=== PATIENT | female | born 2005 | race Caucasian/White ===

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

== ENCOUNTER 2025-06-01 19:31 | Emergency (ER) | payer OTHER, SELFPAY ==
--- OUTSIDE RECORDS SUMMARY | 2022-10-30 08:29 | XMS_ITS | Continuity of Care Document ---
Author Organization [facility] Address [address] [place] [address] Phone Care Team Providers Care Industry Consultant Name Role Phone Mauricio Lovett MD Unavailable Unavailable Allergies, Adverse Reactions, Alerts Substance Reaction Status Criticality RIZATRIPTAN BENZOATE Anaphylaxis Active No Info rmation cefdinir Shortness Of BreathHivesHives Active No Information POTASSIUM CLAVULANATE Anaphylaxis Active No Inf ormation AMOXICILLIN TRIHYDRATE Anaphylaxis Active No In formation [id number] Antimigraine Agents Anaphylaxis Active No Information Medications Medication Instructions Dosage Effective Dates (start - stop) Status Comments Tylenol Extra Strength 500 mg tablet take 2 tablet by oral route every 6 hours as needed 1000 MG - Active ondansetron HCl 4 mg tablet take 1 Tablet by oral route every 6 hours as needed 4 MG - Active naloxone 4 mg/actuation nasal spray - Active morphine 15 mg immediate release tablet take 0.5 tablet by oral route every 4 hours as needed for severe pain - Active escitalopram 20 mg tablet take 0.5 tablet by oral route every day 10 MG - Active desogestrel 0.15 mg-ethinyl estradiol 0.03 mg tablet take 1 tablet by oral route every day 1.00 tablet - Active Procedures Procedure Date Est Pt Eval 25 Min Telehealth 3 No Show Visit Fee Greater Occipital Block Ultrason Guidan Needle Bx-rad 3 Inj Anes Agent Greater Occipt 3 Ultrason Guidan Needle Bx-rad 3 Inj Anes Agent Greater Occipt 3 Change Control for Modifier(s) 23 CC Control For Rem/Void Of Mutually Excl usive Proc Verified No Separate Anesthesia 023 Psychotherapy, 45 minutes with patient T elehealth No Charge No Show Visit Fee Psychiatric Diagnostic Evaluation Teleph one Only New Pt Eval 45 Min Advance Directives Directive Yes / No Effective Date File Name No Information Encounters Encounter Description Practice Location Reason(s) For Visit Diagnoses Date Provider Providers Copied on Encounter CHANTE Wyman, [address], [place], [place], [id number], [place] tel:[phone] [facility] No Information 3 Bony Martínez. [address], [place], [place], [address], [place]. tel:[phone] Referring Provider: Amrik Lovett, [address], [place], [address] . tel:[phone] Est Pt Eval 25 Min Telehealth [facility], [address], [place], [place], [id number], [place] tel:[phone] [facility] headache (chief complaint) Trigeminal neuralgiaMigraine without aura, intractable, with status migrainosusBody mass index (BMI) 19 or less, adult 3 Ketola Elisa. [address], [address], [facility] [place], [address], [place]. tel:[phone] Referring Provider: Amrik Lovett, [address], [facility] [place], [address] . tel:[phone] [facility], [address], [place], [place], [address], [place] tel:[phone] [facility] No Information 3 Zoie Hatch. [address], [address], [facility] [facility], [id number], [place]. tel:[phone] Referring Provider: REFERRAL NILESH, DALE. SUKHDEV Wyman, [address], [place], [place], [id number], [place] tel:[phone] [facility] No Information 3 Serjio Lopezy. [address], [place], [address], [place]. tel:[phone] Referring Provider: Chandana Bassett, [address], [place], [address]. tel:[phone] [facility], [address], [place], [address], [place] tel:[phone] [facility] Head Pain (chief complaint) Trigeminal neuralgiaTrigeminal neuralgia 3 [facility]. [address], [place], [place], [address], [place]. tel:[phone] Referring Provider: Chandana Bassett, [address], [place], [address]. tel:[phone] SUKHDEV Wyman, [address], [place], [place], [address], [place] tel:[phone] [facility] No Information 3 Serjio Ellington. [address], [place], [address], [place]. tel:[phone] Referring Provider: Chandana Bassett, [address], [place], [address]. tel:[phone] Psychotherap y, 45 minutes with patient Telehealth SUKHDEV Wyman, [address], [place], [place], [address], [place] tel:[phone] [facility] Pain disorder with related psychological factorsGeneralized anxiety disorder 3 Zoie Hatch. [address], [address], [place], [address], [place]. tel:[phone] Referring Provider: Amrik Lovett, [address], [place], [address] . tel:[phone] [facility], [address], [place], [place], [address], [place] tel:[phone] [facility] No Information 3 Zoie Hatch. [address], [address], [place], [address], [place]. tel:[phone] Referring Provider: REFERRAL DALE GALLOWAY. [facility], [address], [place], [place], [address], [place] tel:[phone] [facility] No Information 3 Zoie Hatch. [address], [address], [place], [address], [place]. tel:[phone] Referring Provider: REFERRAL SELFDALE. Psychiatric Diagnostic Evaluation Telephone Only [facility], [address], [place], [place], [address], [place] tel:[phone] [facility] Pain disorder with related psychological factorsGeneralized anxiety disorder 3 Zoie Hatch. [address], [address], [place], [address], [place]. tel:[phone] Referring Provider: Amrik Lovett, [address], [place], [address] . tel:[phone] New Pt Eval 45 Min [facility], [facility], [address], [place], [place], [address], [place] tel:[phone] [facility] headache (chief complaint) Trigeminal neuralgiaAtypical facial painMigraine without aura, intractable, with status migrainosus 3 Stayner Patrick. [address], [facility], [address], [place]. tel:[phone] Referring Provider: REFERRAL SELF, DALE. [facility], [facility], [address], [place], [place], [address], [place] tel:[phone] [facility] No Information 3 Stayner Patrick. [address], [place], [address], [place]. tel:[phone] [facility], [address], [place], [place], [address], [place] tel:[phone] YESENIA Wyman No Information 3 RN RN. [address], [address], [facility] [place], [address], [place]. tel:[phone] Family History Family Member Type Diagnosis Age At Onset No Information Payers Payer name Insurance type Covered republican ID Anita lovelaceosmani(s) [facility] CI [id number] Social History Type Description Quantity Date Captured Comments Alcohol Use Details Unknown Caffeine Use Details Unknown Tobacco Use Status No Information Smoking Status No Information Sex Female Chief Complaint And Reason For Visit No Information Reason For Referral Reason For Referral No Information Plan Of Treatment Date Type Action Status Goal Lifestyle education regardin g diet completed Referral Ordered: Referrals: Behavioral Health. Evaluate and treat ordered History Of Present Illness Encounter Date Complaint History Of Prese nt Illness headache Symptom is aggra vated by light, sound, stress and overstimulation. Denies relieving factors. Head Pain The symptoms are reported as being severe. The symptoms occur constantly. Both sides of face; pain behind eyesfractured skull/TBI left side headache Onset: 6 years a go. Severity: incapacitating. It occurs constantly. The problem is worse. Location is frontal left and frontal right. The patient describes it as squeezing. Context: TBI February 2021. Associated symptoms include pressure behind eyes. Functional Status Date Functional Assessmen t No Information Instructions Date Instruction Additional Infor yoonbrenda - Consider Cervical Medial Branch Block and Cervical Radiofrequency Ablation in the futureVisit [email or web address] => treatments =>Interventional Procedures => Medial Branch Block procedures- Continue following up with neurology- Schedule behavioral health as needed- Follow up as needed; Telehealth OK Related to Trigeminal neuralgia Same care of plan as statement for above diagnosis, no changes Related to Migraine without aura, intractable, with status migrainosus Lifestyle education regarding di et Related to Body mass index [BMI] 19.9 or less, adult Follow up in the cli robert to discuss the results of today's injection Related to Trigeminal neuralgia same Related to Atypi tommy facial pain same Related to Migra ine without aura, intractable, with status migrainosus -Schedule a right tr igeminal nerve with sedationNo eating or drinking for 8 hours prior and 

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
--- OUTSIDE RECORDS SUMMARY | 2025-06-01 19:33 | XMS_ITS | Clinical Summary ---
Author Organization [facility] Address [address] [address] Care Team Providers Care Set Up Mechanic Stamping Machines Name Role Phone Shobha Carlisle MD Primary Care Provider [phone] Source Comments You are receiving this document as you are listed as the primary care provider,follow-up provider, or the patient has been referred to you for consultation.This is in compliance with the Medicare andMedicaid EHR Incentive Program,which states Providers who transition their patient to another setting of careor provider of care or refers their patient to another provider of care shouldprovide summary care record for each transition of care or referral. [facility] Allergies Active AllergyReactionsCriticalityNoted DateCommentsAmoxicillin-Pot Clavulanate ZqzoiigvusjNiit60/30/2020CefdinirBreathing Difficulty,MkugiVfto02/30/2020 KagtbehvuozWfxdfqzrmgiRudv09/30/2020 Medications MedicationSigDispense QuantityRefillsLast FilledStart DateEnd DateStatus acetaZOLAMIDE (DIAMOX) 250 MG tablet Take 750 mg by mouth two times a day.Active FLUoxetine (PROZAC) 10 MG tablet Take 10 mg by mouth daily.Active Social History Tobacco UseTypesPacks/DayYears UsedDateSmoking Tobacco: Never Assessed CommentsUnknownSex and Gender InformationValueDate RecordedSex Assigned at Not on fileLegal SyxKizvsa91/15/2019 5:26 PM CSTGender IdentityNot on fileSexual OrientationNot on file Plan of Treatment Health MaintenanceDue DateLast DoneCommentsCervical Cancer Screening Due 2004 4629Btrkmxsxv2004Hep C Screening (Preventive Services)2004MenB Immunization Ganuiydrmh2004HIV Screening (Preventive Services)2020 MCV4 Vaccine (2 - 2-dose series)Adult Preventive Visit 2022HepB Vaccine (1)3COVID-19 Vaccine (1 - season) 2025Influenza Vaccine (#1)502/02/2018, 04/09/2013, 03/30/2011, Additional history existsDTaP/Tdap/Td Vaccine (7 - Tdap), 04/01/2009, 09/27/2005, Additional history existsZoster/Shingles Vaccine (1 of 2)2054Hib WkbrzzfJxeuocdvs09/25/2005, 2004, 2004Pneumococcal VaccineAged Out07/19/2005, 2004, 2004, Additional history existsNo longer eligible based on patient's age to complete this topicHepA Vaccine Zjspmdach90/21/2008, 04/01/2007IPV (Polio) ByxmmbmZjfquyfcu59/22/2009, 07/18/2005, 2004, Additional history existsHPV IxinucvCugpqwjja13/28/2018, 03/08/2017 Insurance * Guarantor: eKila Ashton TypeRelation to PatientDate of BirthPhone Billing AddressPersonal/RirdseAdjglz56/05/1965 [place] [address] Care Teams Team MemberRelationshipSpecialtyStart DateEnd Date Shobha Carlisle MD PCP - GeneralPediatric Medicine07/10/19
--- OUTSIDE RECORDS SUMMARY | 2025-06-01 19:33 | XMS_ITS | Clinical Summary ---
Author Organization [email or web address] Address [address] [place] [address] Care Team Providers Care Junior Financial Analyst Name Role Phone Pretty Arambula MD Primary Care Provider Allergies Active AllergyReactionsCriticalityNoted DateCommentsAmoxicillin-Pot Clavulanate Shortness Of Breath,Rash12/17/2007CefdinirHives,Shortness Of Upyiqo0811/12/2014, [facility] gave cefdinir and had shortness of breath and hives less than 12 hours after taking it. SumatriptanOther - Describe In Comment Field10/18/2020 Weakness, Neck Pain, Lethargic RizatriptanOther - Describe In Comment Field03/19/2019 Difficulty breathing, worsening headache and weakness Medications MedicationSigDispense QuantityRefillsLast FilledStart DateEnd DateStatus sodium chloride (SALINE NASAL) 0.65 % nasal solution Indications:Viral URI with coughInhale 1 [place] in the nostril(s) every hour if needed. 45 mL 03/01/2017Active Additional Information Patient not taking.Reported on 06/21/2024 ondansetron (ZOFRAN) 4 mg tablet Indications:Nausea and vomiting, intractability of vomiting not specified, unspecified vomiting typeTake 1 tablet by mouth every 8 hours if needed for Nausea/Vomiting. 10 tablet 06/29/2017Active fluticasone (50 mcg per actuation) nasal solution (FLONASE) Indications:Chronic intractable headache, unspecified headache typeInhale 1 [place] into both nostrils once daily. 1 Bottle Active Additional Information Patient not taking.Reported on 06/21/2024 naproxen (ANAPROX DS) 550 mg tablet 1,100 mg.12/01/2019Active FLUoxetine (PROZAC) 40 mg capsule Take 40 mg by mouth once daily.11/13/2019Active aluminum chloride (DRYSOL) 20 % external solution Indications:HyperhidrosisApply topically to affected area(s) at bedtime. 60 mL ctive Additional Information Patient not taking.Reported on 06/21/2024 oseltamivir (TAMIFLU) 75 mg capsule Indications:Flu-like symptomsTake 1 Capsule (75 mg) by mouth two times daily. Take as needed for body aches. 10 Capsule 5Active celecoxib (CELEBREX) 100 mg capsule Indications:Body achesTake 1 Capsule (100 mg) by mouth 2 times daily if needed for Pain. 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 S/p LP: still having headaches. Plan:? Photorx and if needed f/u at [facility] [facility] and also [facility]. Chronic wwnhqznao49/13/2020 Overview (08/01/2021): 05/28/2019: F/b DR.Erka Don at [facility], started on Amitriptyline QHs, prn Naprosyn/ retry Imitrex. Referred to Ophthalmology and MRI of brain or blurred optic disc 07/2019 Dr. Florencia Miles follow up. Follow up with neuro-ophtho--NO evidence of intracranial pressure. Adding gabapentin for chronic daily headaches, as well as Zomig. Continue fluoxetine for now. Follow up 08/20/1911/2019 [facility] follow up. Decrease gabapentin to 300mg TID. Naproxen 550mg for abortive therapy if needed. Continue fluoxetine 40mg daily. Plan to continue good control with gabapentin and fluoxetine for at least 6mos before weaning. Follow up one month. 01/01/20 Dr. Don follow up. Never decreased gabapentin. Headaches much improved, but low motivation, sleepy--likely combo of depression, deconditioning and COVID homebound. Plan: decrease mid-day dose to 300mg, then morning dose to 300mg, continue evening dose 400mg; increase fluoxetine to 50mg. Follow up 1- 2mos. Continue abortive therapy 550mg if needed naproxen. 02/2020 Dr. Don. Decreased midday dose to 300mg, mood and energy improved, so never increased to 50mg fluoxetine. Plan decrease dose to 300mg TID if able. Continue fluoxetine 40mg. Follow up 2mos. 04/2020 Dr. Don. Continues to do well, though had one migraine breakthrough. Plan continue gabapentin 400mg/300mg/400mg; continue fluoxetine 40mg. Naproxen or imitrex for breakthrough. Benadryl orzofran if needed. Follow up in 2mos. 08/2020 Dr. Don. Continues daily headaches refractory to high dose gabapentin (has been on 500mg TID). Recommend weaning back down to 300mg TID. Will add Topamax to regimen. Continue fluoxetine 40mg daily. [facility] 1-2 mos. 05/18/21 [facility] intake Resolved Problems ProblemNoted DateDiagnosed DateResolved DateChronic mixed headache syndrome Immunizations ImmunizationAdministration DatesNext DueDT, IPV adsorbed NON-US VACCINE 04/01/2009,07/18/2005,2004,2004,05/26/20044184NNN-Zob-Pei B NON-US KQNYQUT54/,2004,2004DTaP1,09/27/2005,2004, 2004,2004Dtap Unspecified Yvtcnmidkex67/21/2017HIB-HepB (Comvax) 04/04/2005,2004,2004HPV 9 (Gardasil 9)09/05/2017,03/08/2017Hepatitis A (Peds)03/31/2008,04/01/2007Hepatitis A, Pjbfaupbjxb47/21/2008,04/01/2007 Hepatitis B (Peds)04/04/2005,2004,2004Hib Conjugate, Unspecified 04/04/2005,2004,2004Inactivated Polio Xtsbdaa9504/01/2009,07/18/2005, 2004,2004,2004,2004Influenza Virus, Unspecified 03/30/2011,04/18/2006Influenza, IIV3 (Age 6-35 mos)03/30/2011Influenza, IIV3 (Age >=3 years)02/24/2009Influenza, TYE464/07/2019,07/20/2017,04/09/2013 MENINGOCOCCAL VACCINE 2 VIAL 2MO-55YO (MENVEO)10/18/2020,03/01/2017MMR1 ,04/04/2005Pneumococcal conj 7-Valent (Prevnar 7)07/19/2005,2004, 2004,2004Tdap03/01/2017Varicella Lthokvb2904/01/2009,04/04/2005 Family History Medical HistoryRelationNameCommentsDiabetesFatherCancer-pancreaticMaternal GrandmotherThyroid DiseaseMaternal GrandmotherCancerPaternal Grandmotherbladder. DiabetesPaternal GrandmotherThyroid DiseasePaternal GrandmotherRelationName StatusCommentsFatherMaternal GrandmotherPaternal Grandmother Social History Tobacco UseTypesPacks/DayYears UsedDateSmoking Tobacco: NeverPassive Smoke Exposure: NeverSmokeless Tobacco: Never Tobacco Cessation:Counseling Given: No Alcohol UseStandard Drinks/WeekCommentsNever0 (1 standard drink = 0.6 oz pure alcohol)PHQ-2AnswerDate RecordedPHQ-2 Ogkil875Social ConnectionsAnswer Date RecordedDo you often feel lonely or isolated from those around you?0 06/21/2024Financial Resource StrainAnswerDate RecordedDifficulty of Paying Living Znjusypq511/01/2025Difficulty of Paying Living ExpensesNot on file 07/12/2024Food InsecurityAnswerDate RecordedDo you worry your food will run out before you are able to buy more?Transportation NeedsAnswerDate RecordedDoes lack of transportation keep you from medical appointments?1 06/21/2024Does lack of transportation keep you from work, meetings or getting things that you need?Housing StabilityAnswerDate RecordedWhat is your housing situation today?UtilitiesAnswerDate RecordedDo you have trouble paying for utilities (for example, heat, electricity, water, phone)?1 06/21/2024CommentsNoSex and Gender InformationValueDate RecordedSex Assigned at BirthNot on fileLegal DymMxdyfd27/14/2013 7:06 AM CSTGender Identity Not on fileSexual OrientationNot on file Last Filed Vital Signs Vital SignReadingTime TakenCommentsBlood Bnweqvqx394/58006/21/2024 5:07 PM THERAPEUTIC MENTOR Jjxgk13833/11/2025 5:07 PM TNGBflsyqvoewf03.6 ??C (99.7 ??F)06/21/2024 5:07 PM CSTRespiratory Dgba594106/21/2024 5:07 PM CSTOxygen Efaawqsdfx36%06/21/2024 5:07 PM CSTInhaled Oxygen Concentration--Akvwzk86.2 kg (115 lb)06/21/2024 5:07 PM THERAPEUTIC MENTOR Xamfna020.1 cm (5' 5)12/29/2020 11:26 AM CDTBody Mass Index-- Plan of Treatment Health MaintenanceDue DateLast DoneCommentsHIV for age 15-6503/25/2019Chlamydia for age 16-241Depression screening for age 12+, 05/06/2019, 04/15/2019, Additional history existsBMI (ht and wt on same day) for age 18+2022Hepatitis C screening for age 18-792COVID-19 vaccine series ( - 2024- season)2025Influenza Vaccine (#1)5107/13/2019, 07/20/2017, 04/09/2013, Additional history existsPap test for age 21-65 2025Tetanus hwsjwye56Hepatitis B series for 19+Completed 04/04/2005, 04/04/2005, 04/04/2005, Additional history existsPneumococcal series for age 6-49Aged Out07/19/2005, 2004, 2004, Additional history existsNo longer eligible based on patient's age to complete this topicHPV series for age 9-00Jlkfnulsj54/28/2018, 03/08/2017Meningococcal series for age 11-21 Bpfnxluts73/10/2021, 03/01/2017 Insurance * Guarantor: Fritz AshtonAccount TypeRelation to PatientDate of BirthPhoneBilling AddressPersonal/[address] [place] [address] * Guarantor: Fritz Ashton TypeRelation to PatientDate of BirthPhoneBilling AddressPersonal/[address] [place] [address] * Guarantor: Patrick Ashton TypeRelation to PatientDate of BirthPhone Billing AddressPersonal/PmmpcoCcqovl59/13/1969 [place] [address] Care Teams Team MemberRelationshipSpecialtyStart DateEnd Date Pretty Arambula MD PCP - GeneralInternal Medicine01/21/23
--- OUTSIDE RECORDS SUMMARY | 2025-06-01 19:33 | XMS_ITS | Clinical Summary ---
Author Organization [place] Address [address] [facility] 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 Name Role Phone Winnie Don MD Unavailable [phone] Pretty Arambula MD Primary Care Provider Stevenson Eddy DO Unavailable Edgar Sanchez MD Unavailable Pretty Arambula MD Unavailable Arielle Freeman MD Unavailable [phone] Abhay Montgomery PA-C Unavailable Estevan Summers MD Unavailable Estevan Summers MD Unavailable [phone] Allergies Active AllergyReactionsCriticalityNoted DateCommentsAmoxicillin-Pot Clavulanate Anaphylaxis,Rash,Shortness Of LeftsfQwma08/08/2008 Difficulty breathing CefdinirDifficulty breathing,Hives,Shortness Of GbfukaMnxw9611/12/2014, [facility] gave cefdinir and had shortness of breath and hives less than 12 hours after taking it. August 2014, [facility] gave cefdinir and had shortness of breath and hives less than 12 hours after taking it. Clavulanic AcidOther (See Comments)Low04RizatriptanAnaphylaxis,Other (See Comments)High03/19/2019 Difficulty breathing, worsening headache and weakness SumatriptanOther (See Comments)10/18/2020 Weakness, Neck Pain, Lethargic Medications MedicationSigDispense QuantityRefillsLast FilledStart DateEnd DateStatus acetaminophen (TYLENOL) 500 MG tablet Indications:Conductive hearing loss due to disorder of middle earTake 2 tablets (1,000 mg) by mouth every 6 hours as needed for mild pain07/11/2021ctive naloxone (NARCAN) 4 MG/0.1ML nasal spray Indications:Chronic tension-type headache, intractable,Chronic pain syndrome [place] 1 spray (4 mg) into one nostril alternating nostrils once as needed for opioid reversal every2-3 minutes until assistance arrives 0.2 mL 04/20/2022ctive morphine (MSIR) 15 MG IR tablet Indications:Chronic tension-type headache, intractable,Chronic pain syndromeTake 0.5 tablets (7.5 mg) by mouth every 4 hours as needed for severe pain 15 tablet 08/08/2023ctive metoprolol tartrate (LOPRESSOR) 25 MG tablet Indications:POTS (postural orthostatic tachycardia syndrome)Take 1 tablet (25 mg) by mouth 2 times daily. 60 tablet 4Active midodrine (PROAMATINE) 2.5 MG tablet Indications:POTS (postural orthostatic tachycardia syndrome)Take 1 tablet (2.5 mg) by mouth 3 times daily. 90 tablet 4Active ondansetron (ZOFRAN ODT) 4 MG ODT tab Indications:Traumatic brain injury with loss of consciousness, sequelaTake 1 tablet (4 mg) by mouth every 6 hours as needed for nausea or vomiting. 30 tablet 5Active desogestrel-ethinyl estradiol (APRI) 0.15-30 MG-MCG tablet Indications:Encounter for initial prescription of contraceptive pillsTake 1 tablet by mouth daily. 84 tablet 5ActiveHospital, Clinic, or Other Facility Administered Medication Ordered DoseRouteFrequencyStart DateEnd DateStatus sodium chloride (PF) 0.9% PF flush 3 mL Indications:Dehydration,POTS (postural orthostatic tachycardia syndrome)3 mLIV EVERY 1 MIN PRN5Active Active Problems ProblemNoted DateDiagnosed DatePOTS (postural orthostatic tachycardia syndrome) 05/17/2023Encounter for long-term (current) use of ysndtvebjlq24/25/2022 Conductive hearing loss, sranhhvsnt16/16/2022hronic tension-type headache, zkhbxxlwzba60/24/2021hronic peripheral neuropathic pain05/04/2021ircadian rhythm sleep qnqbzpao46/24/2021ecreased social ohooyqcrlir97/24/2021hysical ofmkwratkzavvj23/01/2021hronic pain ytcsoopy89/01/2021pecial educational needs 02/09/20212756Jucjnsbo37/25/2021Traumatic brain oemyzm3102/02/2021djustment disorder with mixed anxiety and depressed mood02/02/2021 Resolved Problems ProblemNoted DateDiagnosed DateResolved DateProblem with school attendance SIADH (syndrome of inappropriate ADH production)02/09/2021 08/08/2023Subdural nhrxeutj70 Immunizations ImmunizationAdministration DatesNext DueComvax (HIB/HepB)04/04/2005,2004, 2004DT,IPV Adsorbed (Non-[place])04/01/2009,07/18/2005,2004,2004, 2004DTAP (<7y)04/01/2009,09/27/2005,2004,2004,2004DTaP, Dlcpalxuace80/21/2017Dtp,hib Conjugate,hep B1,2004,2004, 2004,2004Flu, Odhoprdrfal50/20/2011,04/18/2006HIB, Unspecified 04/04/2005,2004,2004HPV09/05/2017HPV9 (Gardasil)09/03/2017, 03/08/2017HepA, Oofdhysgxyq83/21/2008,04/01/2007Hepatitis A (Vaqta/Havrix)(Peds 12m-18y)03/31/2008,04/01/2007Hepatitis B, Peds (Engerix-B/Recombivax HB) 04/04/2005,2004,2004Influenza (IIV3) PF03/30/2011,02/24/2009 Influenza (intradermal)04/18/2006Influenza (prior to 2023)03/30/2011Influenza Vaccine >6 months,quad, PF05/12/2020,07/20/2017,04/09/2013MMR (MMRII)04/01/2009, 04/04/2005Meningococcal ACWY (Menveo??)10/18/2020,03/01/2017Pneumococcal (PCV 7) 07/19/2005,2004,2004,2004Poliovirus, inactivated (IPV) 04/01/2009,07/18/2005,2004,2004,2004TDAP (Adacel,Boostrix) 03/01/2017Varicella (Varivax)04/01/2009,04/04/2005 Family History Medical HistoryRelationCommentsNo Known ProblemsBrother 1No Known Problems Brother 2DiabetesFatherOther CancerMaternal GrandmotherPancreaticThyroid Disease Maternal GrandmotherFibromyalgiaMotherBladder CancerPaternal GrandmotherDiabetes Paternal GrandmotherLung CancerPaternal GrandmotherGlaucomaNo family hx of Macular DegenerationNo family hx ofRelationStatusCommentsBrother 1AliveBrother 2 AliveFatherAliveMaternal GrandfatherMaternal GrandmotherMotherAlivePaternal Grandmother Social History Tobacco UseTypesPacks/DayYears UsedDateSmoking Tobacco: NeverPassive Smoke Exposure: NeverSmokeless Tobacco: Never Tobacco Cessation:Counseling Given: Not Answered Alcohol UseStandard Drinks/WeekCommentsNever0 (1 standard drink = 0.6 oz pure alcohol)PHQ-2AnswerDate RecordedPHQ-2 Wuduj772/4Adolescent EducationAnswer Date RecordedGetting School Help NeededNot on file09/22/2023Food Insecurity AnswerDate RecordedWithin the past 12 months, did you worry that your food would run out before you got money to buy more?No05/16/2023Within the past 12 months, did the food you bought just not last and you didn???t have money to getmore?No 05/16/2023Housing StabilityAnswerDate RecordedDo you have housing? (Housing is defined as stable permanent housing and does not include staying outside in a car, in a tent, in an abandoned building, in an overnight prison, or couch-surfing.)Yes05/16/2023re you worried about losing your housing?No 05/16/2023Financial Resource StrainAnswerDate RecordedWithin the past 12 months, have you or your family members you live with been unable to get utilities (heat, electricity) when it was really needed?No05/16/2023Transportation Needs AnswerDate RecordedWithin the past 12 months, has lack of transportation kept you from medical appointments, getting your medicines, non-medical meetings or appointments, work, or from getting things that you need?No05/16/2023 CommentsNoSex and Gender InformationValueDate RecordedSex Assigned at Kgblls7203/01/2021 8:23 AM CDTLegal ZyzCvzqgz56/04/2012 4:35 AM CSTGender Identity Kphnpr7803/01/2021 8:23 AM CDTSexual DzkhsfdyqpkSbdbngay89/21/2021 8:23 AM CDT Last Filed Vital Signs Vital SignReadingTime TakenCommentsBlood Nyfkqvpp024/77007/01/2024 9:07 AM LATHE SET UP OPERATOR Vdpqg09157/21/2025 9:07 AM ZLJClpnoboaomr45.9 ??C (98.4 ??F)07/01/2024 9:07 AM CSTRespiratory Ywxg897907/01/2024 9:07 AM CSTOxygen Lmhvtjqsto84%07/01/2024 9:07 AM CSTInhaled Oxygen Concentration--Jjxnhw65.5 kg (107 lb)07/01/2024 9:07 AM LATHE SET UP OPERATOR Ijyrdh459.1 cm (5' 5)03/13/2024 9:24 AM CDTBody Mass Index17.8103/13/2024 9:24 AM CDT Plan of Treatment Health MaintenanceDue DateLast DoneCommentsANNUAL REVIEW OF HM ZOLBEJ51 2004 CHLAMYDIA JTTYXOZVO2004HIV ZHTYZEXVH22/15/2019MENINGITIS B VACCINE (1 of 2 - Standard)2020YEARLY PREVENTIVE VISIT/03/2021HEPATITIS C ZHSAIQECM01/15/2022PNEUMOCOCCAL VACCINE: PEDIATRICS (0 to 5 YEARS) AND AT-RISK PATIENTS (6 to 49 YEARS) (1 of 2 - PCV)/01/2006, 2004, 2004, Additional history existsGAD MFKOXQULND03/05/202410/10/2022, 11/23/2022, 11/23/2022, Additional history existsCOVID-19 VACCINE ( - season)2025INFLUENZA VACCINE (#1)/07/2019, 07/20/2017, 04/09/2013, Additional history existsPHQ-91//08/2023, 08/08/2023, 05/16/2023, Additional history nnpvxaLZY43/15/2025ADVANCE CARE PLANNING TAP/TDAP/TD VACCINE (8 - Td or Tdap), 03/01/2017, 04/01/2009, Additional history existsZOSTER VACCINE (1 of 2) 2054HEPATITIS B JKGEUPJUcfrlwtnq98/25/2005, 04/04/2005, 04/04/2005, Additional history existsHPV WCAHRRSMoxgpixsl54/28/2018, 09/03/2017, 03/08/2017 MENINGITIS RBWMRNPGzijedizb13/10/2021, 03/01/2017 Procedures Procedure NamePriorityDate/TimeAssociated DiagnosisCommentsPHQ-9 DEPRESSION SCREENING ZBQEYQxieyfx23/02/2019 from Last 3 Months or Most Recently Relevant to Health Maintenance Results * PHQ-9 DEPRESSION SCREENING ORDER (05/12/2019)ComponentValueRef RangeTest MethodAnalysis TimePerformed AtPathologist SignaturePHQ9 SCORE9 Narrative Kendal Quezada - 05/12/2019 [facility] -Progress note Authorizing ProviderResult TypeResult StatusProvider OutsideOTHERFinal Result from Last 3 Months or Most Recently Relevant to Health Maintenance Insurance * Guarantor: AUREA ASHTON TypeRelation to PatientDate of BirthPhone Billing AddressPersonal/ApxrxmTnwufn30/13/1969 [place] [address] * Guarantor: Fritz Ashtonunt TypeRelation to PatientDate of BirthPhone Billing AddressPersonal/[address] [place] [address] * Guarantor: AUREA ASHTON TypeRelation to PatientDate of BirthPhone Billing AddressPersonal/KhqlraWfvfft80/13/1969 [place] [address] * Guarantor: Fritz Ashton TypeRelation to PatientDate of BirthPhone Billing AddressPersonal/[address] [place] [address] * Guarantor: Tirso ASHTON TypeRelation to PatientDate of BirthPhone Billing VxnlufvHyylisubaiBuwvlp92/13/1969 [place] [address] * Guarantor: AUREA ORR CAc TypeRelation to PatientDate of BirthPhone Billing AddressThird EdbsdFtgzbg[address][birth year][address]1969 [place] [address] * Guarantor: Fritz Ashton EAccolennie TypeRelation to PatientDate of BirthPhone Billing [address]dlhzoIln[address]shmz[address] [place] [address] Advance Directives For more information, please contact: [phone] * Full Code (Latest Code Status on File) Date ActivatedDate InactivatedComments02/02/2021 11:50 AM02/12/2021 1:12 PMAll basic and advanced life-sustaining interventions are performed as appropriate QuestionAnswerCommentsCode status determined by:* Discussion with patient/ legal decision maker * Full Code Date ActivatedDate InactivatedComments01/30/2021 12:08 PM02/01/2021 5:56 PMAll basic and advanced life-sustaining interventions are performed as appropriate QuestionAnswerCommentsCode status determined by:* Discussion with patient/ legal decision maker Care Teams Team MemberRelationshipSpecialtyStart DateEnd Pretty Arambula MD [address] [place] [address] PCP - GeneralInternal Medicine02/18/21 Winnie Don MD [facility] [address] [place] [address] Neurolog07/10/19 Stevenson Eddy DO [address] [place] [id number] MDPhysical Medicine & Rehabilitation, Pediatric02/21/21 Edgar Sanchez MD [address] [place] [address] QWUrlfaixoti88/25/21 Pretty Arambula MD [address] [place] [address] Assigned PCP08/05/22 Arielle Freeman MD [address] [place] [address] Pediatrics02/23/23 Abhay Montgomery PA-C [address] [place] [address] Physician AssistantGastroenterology02/23/23 Estevan Summers MD [address] [place] [address] [id number] MDCardiovascular Disease09/19/23 Estevan Summers MD [address] [place] [id number] Assigned Heart and Vascular Provider03/03/24
[2025-06-01 19:47] VITALS: BP 125/84; PULSE 117; RESP 18; TEMP 36.5; O2SAT 98; BMI 18.8
--- NOTE | 2025-06-01 21:43 | ED.NAVMDI ---
HPI - Nausea/Vomiting/Diarrhea General Date Seen: 06/01/25 Chief complaint: Nausea/Vomiting Stated complaint: Vomiting and lower body pain Time Seen by Provider: 06/01/25 21:43 Source: patient, RN notes reviewed and old records reviewed Mode of arrival: ambulatory Limitations: no limitations History of Present Illness HPI Narrative: Fritz is a 20-year-old female with history of TBI remote history of subdural, diagnosis of EDS with daily chronic pain who comes to the emergency room with her mother for evaluation regarding nausea vomiting diarrhea and severe low back pain radiating around to her anterior thighs and down to her knees for the past 24 hours. Fritz notes the onset of vomiting yesterday with associated very watery diarrhea. She had recently been it too family functions and thought perhaps this was food-borne illness but does not know of any other ill family members. Admittedly, she has not communicated with them however. She notes that she has chronic low back and hip pain from what is presumed to be a lower stand low syndrome but now the pain is much more intense wraps around to the front of her pelvis and down the anterior aspect of her legs. She has not had a known fever but does feel very hot at times. She has not been vomiting any blood. Her EDS has not been formally diagnosed by rheumatology. She had many symptoms that convinced her primary clinic that she may. Patient's mom is worried that in her vomiting she may have dislocated her back or her hips because the pain was so severe. She tells me that her daughter has a very high pain tolerance. Associated nausea: Yes Related Data Home Medications ?Medication ?Instructions ?Recorded ?Confirmed desogestrel 0.15 mg-ethinyl 1 tab PO DAILY 09/24/22 06/01/25 estradiol 0.03 mg tablet (Apri) Previous Rx's ?Medication ?Instructions ?Recorded prochlorperazine maleate 5 mg 5 mg PO TID PRN #10 tabs 06/02/25 tablet (Compazine) Allergies Allergy/AdvReac Type Severity Reaction Status Date / Time amoxicillin (From Augmentin) Allergy Mild Hives Verified 06/01/25 19:53 clavulanic acid (From Allergy Mild Hives Verified 06/01/25 19:53 Augmentin) sumatriptan Allergy Mild Hives Verified 06/01/25 19:53 cefdinir AdvReac Verified 06/01/25 19:54 topiramate (From Topamax) AdvReac Verified 06/01/25 19:54 Review of Systems Status of ROS: Reports: 10 or more systems reviewed and unremarkable except as noted in History and below Const: Reports: chills and fatigue; Denies: fever Eyes: Denies: change in vision ENMT: Denies: neck pain or nasal congestion Cardio: Reports: lightheadedness; Denies: chest pain or shortness of breath with exertion Resp: Denies: shortness of breath or cough GI: Reports: abdominal pain, nausea, vomiting and diarrhea; Denies: blood in stool : Denies: painful urination or urinary frequency Musculo: Reports: back pain, extremity pain and joint pain; Denies: neck pain or extremity swelling Endo: Reports: fatigue PFSH PFSH Medical History Subdural hematoma, post-traumatic ?S06.5XAA - Traumatic subdural hemorrhage with loss of consciousness status unknown, initial encounter (ICD-10) SIADH (syndrome of inappropriate ADH production) ?E22.2 - Syndrome of inappropriate secretion of antidiuretic hormone (ICD-10) Chronic headache ?R51.9 - Headache, unspecified (ICD-10) ?G89.29 - Other chronic pain (ICD-10) History of traumatic brain injury ?Z87.820 - Personal history of traumatic brain injury (ICD-10) Exam Narrative: Exam Narrative: Alert and oriented. Appears to be in significant discomfort. Somewhat distractible. External ears eyes nose clear. Neck is supple. Lips are dry. Heart with a tachycardic rate normal rhythm. Lungs are clear. Abdomen shows rather diffuse discomfort. No rebound tenderness. Palpation down the thoracic and lumbar spine without significant tenderness. No CVA tenderness with percussion. Examination of the lower extremities shows no evidence of rash, petechiae, unusual swelling. She is moving her lower extremities. She is observed walking without difficulty in the ED. Const: Vital Signs, click to edit/add: Vital Signs - 24 hr 06/01/25 19:47 06/01/25 22:47 06/02/25 00:37 Temperature 97.7 F Pulse Rate 89 75 Pulse Rate [Pulse Oximeter] 117 H Respiratory Rate 18 16 16 Blood Pressure 100/56 L 99/58 L Blood Pressure [Le ft Upper Arm] 125/84 Pulse Oximetry 98 98 99 Oxygen Delivery Me thod Room Air Room Air Room Air Documenting provider has reviewed patient's vital signs: yes Course Course ED Course: Differential diagnosis includes but is not limited to pyelonephritis, gastroenteritis, food-borne illness, exacerbation of the EDS from viral syndrome. At this time will place an IV give fluids, Toradol, Compazine 2.5 mg and diphenhydramine 25 mg as she has failed Zofran at home. Labs will include CBC, comprehensive, CRP, hCG, urinalysis. Reevaluation(s) Reevaluation #1: Patient noted to have resolution of vomiting but continued pain. Patient is given morphine 4 mg IV. HCG is negative and therefore will send patient to CT for pain out of proportion to exam. Reevaluation #2: Nursing staff alerts me to the fact that patient is asking for pain and nausea medicine. Will give her a dose of Dilaudid 0.5 mg IV x1. Only awaiting CT results. Vital Signs Vital signs: Initial Vital Signs Temperature 97.7 F 06/01/25 19:47 Temperature Source Temporal Artery Scan 06/01/25 19:47 Pulse Rate 117 H 06/01/25 19:47 Respiratory Rate 18 06/01/25 19:47 Blood Pressure 125/84 06/01/25 19:47 Blood Pressure Mean 97 06/01/25 19:47 Blood Pressure Position Sitting 06/01/25 19:47 Pulse Oximetry 98 06/01/25 19:47 Oxygen Delivery Method Room Air 06/01/25 19:47 Vital Signs Temperature 97.7 F 06/01/25 19:47 Pulse Rate 117 H 06/01/25 19:47 Respiratory Rate 18 06/01/25 19:47 Blood Pressure 125/84 06/01/25 19:47 Pulse Oximetry 98 06/01/25 19:47 Oxygen Delivery Method Room Air 06/01/25 19:47 Temperature 97.7 F 06/01/25 19:47 Pulse Rate 75 06/02/25 00:37 Respiratory Rate 16 06/02/25 00:37 Blood Pressure 99/58 L 06/02/25 00:37 Pulse Oximetry 99 06/02/25 00:37 Oxygen Delivery Method Room Air 06/02/25 00:37 Medications Administered Medications: Generic Name Dose Route Start Last Admin Trade Name Freq PRN Reason Stop Dose Admin Hydromorphone HCl 0.5 mg 06/02/25 00:46 06/02/25 00:00 Hydromorphone 0.5 Mg/0.5 Ml Inj IVP 06/02/25 00:47 0.5 mg ONCE ONE Administration Sodium Chloride 1,000 mls @ 1,000 mls/hr 06/02/25 00:29 06/02/25 01:06 0.9 % Sodium Chloride 1000 Ml IV 06/02/25 01:28 1,000 mls/hr .Q1H LORI Administration Discontinued Medications Generic Name Dose Route Start Last Admin Trade Name Jose Enrique PRN Reason Stop Dose Admin Diphenhydramine HCl 25 mg 06/01/25 21:53 06/01/25 22:16 Diphenhydramine 50 Mg/Ml Inj IVP 06/01/25 21:54 25 mg ONCE ONE Administration Sodium Chloride 1,000 mls @ 1,000 mls/hr 06/01/25 21:53 06/01/25 23:15 0.9 % Sodium Chloride 1000 Ml IV 06/01/25 22:52 Infused .Q1H LORI Infusion Ketorolac Tromethamine 15 mg 06/01/25 21:55 06/01/25 22:13 Ketorolac 15 Mg/Ml Inj IVP 06/01/25 21:56 15 mg ONCE ONE Administration Morphine Sulfate 4 mg 06/01/25 22:25 06/01/25 22:43 Morphine 4 Mg/Ml Inj IVP 06/01/25 22:26 4 mg ONCE ONE Administration Prochlorperazine 2.5 mg 06/01/25 21:53 06/01/25 22:14 Prochlorperazine 5 Mg/Ml Vial IVP 06/01/25 21:54 2.5 mg ONCE ONE Administration MDM - Nausea/Vomiting/Diarrhea MDM Narrative Medical decision making narrative: 1. Vomiting nausea and diarrhea-presume this is a gastroenteritis. Viral load most likely cause but could be bacterial. Unable to collect stool study here in the ED so will send home sample kit. No evidence of colitis noted on CT. Reassuring CT. White count is normal. No evidence of UTI. At this time patient is improved. No further vomiting or diarrhea in the ED with treatment. Will be discharging her home. Will send her home with 2 tablets of Cross to be used 1 tablet every 4 hours as needed. Will also send her home with 1 Compazine tablet 5 mg to be used for return of vomiting. Due to ketone urea 4+ patient to receive 2 L of normal saline. No evidence of UTI as noted. I did send Compazine 5 mg p.o. to the pharmacy. However, I did not send any further pain medications as patient does have history of chronic pain. I feel would be very important that she have limited prescribers. Should she need any further pain medication she will need to go through her primary MD. 2. Disposition-push fluids, rest, return for as needed for worsening symptoms and as needed. Medical Records Attestation: I reviewed the patient's medical records. Lab Data Attestation: I reviewed the patient's lab results. Labs: Lab Results 06/01/25 06/01/25 Range/Units 22:05 23:39 WBC 6.53 (4.50-11.00) K/uL RBC 4.67 (4.00-5.20) m/uL Hgb 14.0 (12.0-16.0) gm/dL Hct 40.1 (33.0-51.0) % MCV 86 (80-100) fL MCH 30 (26-34) pg MCHC 35 (32-36) gm/dL RDW Coeff of Robina 11.9 (11.5-15.5) % Plt Count 223 (140-440) K/uL Neut % (Auto) 89.1 H (42.0-72.0) % Lymph % (Auto) 6.0 L (20-44) % [place] % (Auto) 4.4 (0.0-11.0) % Eos % (Auto) 0.0 (0.0-7.0) % Baso % (Auto) 0.2 (0.0-3.0) % Neut # (Auto) 5.80 (1.7-7.0) K/uL Lymph # (Auto) 0.40 L (0.90-2.90) K/uL [place] # (Auto) 0.30 (0.00-0.90) K/UL Eos # (Auto) 0.00 (0.00-0.50) K/uL Baso # (Auto) 0.01 (0.00-0.30) K/uL Abs Immat Gran (auto) 0.02 (0.00-0.30) K/uL Imm/Tot Granulo (auto) 0.3 % Sodium 133 L (135-149) mmol/L Potassium 3.5 L (3.6-5.1) mmol/L Chloride 104 (96-114) mmol/L Carbon Dioxide 17 L (20-32) mmol/L Anion Gap 12 (7-15) mEq/L BUN 13 (5-24) mg/dL Creatinine 0.7 (0.5-1.5) mg/dL Estimated Creat Clear 102.87 Estimated GFR 126 ml/min Glucose 115 (60-115) mg/dL Lactate 1.9 (0.5-1.9) mmol/L Calcium 9.0 (8.4-10.6) mg/dL Total Bilirubin 1.2 (0.1-1.5) mg/dL AST 22 (12-35) U/L ALT 21 (4-35) U/L Alkaline Phosphatase 52 (40-150) U/L C-Reactive Protein 4.3 H (0.5-1.0) mg/dL Total Protein 7.5 (6.0-8.3) g/dL Albumin 4.5 (3.3-5.0) g/dL HCG, Qual Negative (Negative) Urine Color Yellow (Yellow) Urine Appearance Clear (Clear) Urine pH 6.0 (5.0-8.5) Ur Specific [place] 1.025 (1.000-1.030) Urine Protein 1+ A (Negative) Urine Glucose (UA) Negative (Negative) Urine Ketones 4+ A (Negative) Urine Blood Negative (Negative) Urine Nitrite Negative (Negative) Urine Bilirubin Negative (Negative) Urine Urobilinogen 0.2 (0.2-1.0) Ur Leukocyte Esterase Negative (Negative) Urine RBC 0-2 (0-2) Urine WBC 0-2 (0-5) Ur Squamous Epith Cells Few (None-Few) Urine Bacteria None (None) Imaging Data CT scan - abdomen: Attestation: I have reviewed the pertinent imaging results. My impression: I do not note acute appendicitis or bowel obstruction. Radiologist's impression: Lower chest: Unremarkable. Liver: Unremarkable. Gallbladder and bile ducts: Unremarkable. Pancreas: Unremarkable. Spleen: Unremarkable. Adrenal glands: Unremarkable. Kidneys: Symmetric renal enhancement. No hydronephrosis or hydroureter. No obstructing calculi. GI tract: No bowel obstruction. No suspicious bowel wall thickening. No CT evidence of acute appendicitis. Vasculature: No abdominal aortic aneurysm. Grossly patent vasculature. Lymph nodes: No suspicious lymphadenopathy. Peritoneum/Abdominal Wall: Trace pelvic ascites, likely physiologic. No pneumoperitoneum. No acute abdominal wall abnormality. Pelvis: Normal bladder. No suspicious adnexal mass. Bones: No acute abnormality. IMPRESSION: 1. No acute intra-abdominal/pelvic pathology appreciated. Discharge Plan Discharge Clinical Impression: Nausea vomiting and diarrhea, Pain in pelvis Patient Disposition: Home, Self-Care Condition: Improved Additional Instructions: Compazine is unfortunately not in our vending machine and therefore I have sent that to the pharmacy for you to curing pickling packer tomorrow if needed. Will send out dose home with you to be used as needed. Will send 2 tablets of Cross which is a combination medication of hydrocodone and Tylenol for discomfort. You may take 1 tablet every 4 hours as needed. Further narcotic pain medications will need to go through your primary MD. Will also send home a stool collection kit for you. Return/seek medical attention for worsening symptoms and as needed. Prescriptions: New prochlorperazine maleate [Compazine] 5 mg tablet 5 mg PO TID PRNQty: 10 0RF No Action desogestrel-ethinyl estradiol [Apri] 0.15-0.03 mg tablet 1 tab PO DAILY Follow Up/Referrals: Pretty Arambula MD [Primary Care Provider, Internal Medicine] Stand Alone Forms: [employer] Info Instructions
[2025-06-01] MEDS: PROCHLORPERAZINE 5 MG/ML VIAL 2.5 MG IVP (22:14)
[2025-06-01 22:18] LABS: Lactate* 1.9 mmol/L (0.5-1.9)
[2025-06-01 22:21] LABS: Hematocrit* 40.1 % (33.0-51.0); Hemoglobin* 14.0 gm/dL (12.0-16.0); Immature Granulocytes Abs Auto 0.02 K/uL (0.00-0.30); Immature Granulocytes Pct Auto 0.3 %; Mean Corpuscular HGB Conc 35 gm/dL (32-36); Mean Corpuscular Hemoglobin 30 pg (26-34); Mean Corpuscular Volume 86 fL (80-100); RDW Coefficient of Variation % 11.9 % (11.5-15.5); Red Blood Count* 4.67 m/uL (4.00-5.20); White Blood Count* 6.53 K/uL (4.50-11.00)
[2025-06-01 22:39] LABS: Albumin* 4.5 g/dL (3.3-5.0); Chloride* 104 mmol/L (96-114); Potassium* 3.5 mmol/L (3.6-5.1); Sodium* 133 mmol/L (135-149)
[2025-06-01 22:42] LABS: Alanine Aminotransferase* 21 U/L (4-35); Alkaline Phosphatase* 52 U/L (40-150); Anion Gap 12 mEq/L (7-15); Aspartate Amino Transferase* 22 U/L (12-35); Bilirubin Total* 1.2 mg/dL (0.1-1.5); Blood Urea Nitrogen* 13 mg/dL (5-24); Carbon Dioxide* 17 mmol/L (20-32); Creatinine* 0.7 mg/dL (0.5-1.5); Est. Creatinine Clearance* 102.87; Estimated Glomerular Filt Rate 126 ml/min; Total Protein* 7.5 g/dL (6.0-8.3)
[2025-06-01 22:43] LABS: Calcium* 9.0 mg/dL (8.4-10.6); Glucose* 115 mg/dL (60-115)
[2025-06-01] MEDS: MORPHINE 4 MG/ML INJ IVP (22:43)
[2025-06-01 22:47] VITALS: BP 100/56; PULSE 89; RESP 16; O2SAT 98
[2025-06-01 22:53] LABS: Lymphocytes Absolute Auto 0.40 K/uL (0.90-2.90); Slide Review Reflex No
[2025-06-01 23:16] LABS: HCG Qualitative Serum* Negative (Negative)
[2025-06-01 23:58] LABS: Appearance Urine Clear (Clear)
--- NOTE | 2025-06-02 00:29 | CRLHL7_ITS ---
For Patients: As a result of the Century Cures Act, medical imaging exams and procedure reports are released immediately into your electronic medical record. You may view this report before your referring provider. If you have questions, please contact your health care provider. INDICATION: Back and lower abdominal pain. Diarrhea and vomiting. TECHNIQUE: CT abdomen and pelvis acquired with 55 cc Isovue 370 IV contrast. COMPARISON: None. FINDINGS: Lower chest: Unremarkable. Liver: Unremarkable. Gallbladder and bile ducts: Unremarkable. Pancreas: Unremarkable. Spleen: Unremarkable. Adrenal glands: Unremarkable. Kidneys: Symmetric renal enhancement. No hydronephrosis or hydroureter. No obstructing calculi. GI tract: No bowel obstruction. No suspicious bowel wall thickening. No CT evidence of acute appendicitis. Vasculature: No abdominal aortic aneurysm. Grossly patent vasculature. Lymph nodes: No suspicious lymphadenopathy. Peritoneum/Abdominal Wall: Trace pelvic ascites, likely physiologic. No pneumoperitoneum. No acute abdominal wall abnormality. Pelvis: Normal bladder. No suspicious adnexal mass. Bones: No acute abnormality. IMPRESSION: 1. No acute intra-abdominal/pelvic pathology appreciated. Please note that all CT scans at this facility use dose modulation, iterative reconstruction, and/or weight-based dosing when appropriate to reduce radiation dose to as low as reasonably achievable. Dictated by Ej Spicer MD @ 06/02/2025 1:34:52 AM (Electronically Signed)
[2025-06-02 00:37] VITALS: BP 99/58; PULSE 75; RESP 16; O2SAT 99
[2025-06-02] MEDS: HYDROCODONE-ACETAMIN 5-325 MG 1 TAB 2 TAB PO (02:35)
[2025-06-02] MEDS: PROCHLORPERAZINE 10 MG TABLET 5 MG PO (02:44)
== END 2025-06-02 02:55 | disposition home or self-care (01) ==
PROVIDERS: Emergency Provider Family Medicine; PCP Pediatrics
DX: R11.2 Nausea with vomiting, unspecified (principal); R19.7 Diarrhea, unspecified; R10.20 Pelvic and perineal pain unspecified side
CPT/HCPCS: 36415; 74177; 80053; 81001; 83605; 84703; 85025; 86140; 87493; 87507; 96374; 96375; 99284; 99285; A9270; J0780; J1171; J1200; J1885; J2270; J7030; Q9967